=== PATIENT | male | born 1945 | race Caucasian/White ===

== ENCOUNTER 2016-12-12 15:45 | Inpatient (IN) | payer OTHER ==
[2016-12-12] MEDS ORDERED: DILTIAZEM 25 MG/5 ML VIAL IVP ONE (16:10)
--- NOTE | 2016-12-12 16:10 | CPEKG ---
Heart Rate: 190 RR Interval: 316 QRSD Interval: 82 QT Interval: 244 QTC Interval: 434 QRS [place]: 81 T Wave [place]: 201 EKG Severity - ABNORMAL ECG - EKG Impression: ATRIAL FIBRILLATION WITH RAPID V-RATE EKG Impression: RUN OF VENTRICULAR PREMATURE COMPLEXES EKG Impression: ABERRANT COMPLEX, POSSIBLY SUPRAVENTRICULAR EKG Impression: BORDERLINE RIGHT AXIS DEVIATION EKG Impression: LOW VOLTAGE IN FRONTAL LEADS EKG Impression: REPOLARIZATION ABNORMALITY, PROB RATE RELATED Electronically Signed By: Sagrario Villalobos 12-Dec-2016 22:46:27
--- NOTE | 2016-12-12 16:13 | EDPHY ---
H & P Time Seen by Provider: 12/12/16 15:53 HPI/ROS: CHIEF COMPLAINT: Rapid heart rate HISTORY OF PRESENT ILLNESS: Patient is a 71-year-old male with history of biventricular heart failure, atrial fibrillation, severe tricuspid regurgitation and renal insufficiency who is noncompliant with his medication and treatment plan. He states that for the past 3 months he has had increasing "arrhythmias." Over the past week he has had "an eye opening experience." He was [place] felt short of breath and was very tired. He had increased palpitations. He has also noticed ongoing increasing palpitations. He has had some mild chest pain earlier this week but none currently. He denies leg pain or swelling. No fevers or chills. No cough. Patient went to see his primary senior process control tech, Dr. Jacinto, today. There is found to be in rapid AFib. He was sent to the emergency department. Patient states he is noncompliant with his medications. He is currently not taking amiodarone, carvedilol, Lasix, lisinopril or warfarin. The patient states "I am like a chris off the street." REVIEW OF SYSTEMS: My complete review of systems is negative except as mentioned in the HPI. Past Medical/Surgical History: Includes biventricular heart failure, atrial fibrillation with rapid ventricular response, severe tricuspid regurgitation, acute renal insufficiency , elevated liver function tests, cardiomyopathy Social history: The patient denies smoking. Smoking Status: Never smoked Physical Exam: Vitals noted. Tachycardic in the 180s. GENERAL: Well-appearing, in no acute distress, alert. HEENT: Eyes normal to inspection, normal pharynx, no signs of dehydration. NECK: No thyromegaly, no lymphadenopathy, supple. RESPIRATORY: Clear to auscultation bilaterally, no rales, rhonchi or wheezing. CVS: rapid and irregularly irregular rhythm, no rubs, murmurs, or gallops. ABDOMEN: Soft, nontender, nondistended, no organomegaly. BACK: Normal to inspection, no CVA tenderness. SKIN: Normal color, no rash, warm, dry. No pallor. EXTREMITIES: No pedal edema, no calf tenderness, no Homans sign or cords, no joint swelling. NEURO/PSYCH: Alert and oriented x3, normal mood and affect, normal motor sensory exam. No obvious cranial nerve deficit. Constitutional: Initial Vital Signs Temperature (C) 36.8 C 12/12/16 16:02 Heart Rate 202 H 12/12/16 16:02 Respiratory Rate 16 12/12/16 16:02 Blood Pressure 126/86 H 12/12/16 16:02 O2 Sat (%) 96 12/12/16 16:02 O2 Delivery Mode Room Air Allergies/Adverse Reactions: No Allergies [NKA] Allergy (Unknown, Verified 10/18/12 15:12) Home Medications: Medication Instructions Recorded Permethrin 5% [Elimite 5% (RX)] 1 toño TP AD PRN 12/12/16 Medical Decision Making - Diagnostics EKG Interpretation: Atrial fibrillation with rapid ventricular response at 190. Multiple ventricular premature complexes. Borderline right axis deviation. ST depression in V4 through V 6. Imaging Results: Imaging Impressions Chest X-Ray 12/12/16 16:36 Impression: Stable cardiomegaly. Otherwise negative ED Course/Re-evaluation: In the emergency department the patient was placed on a media monitor. He was noted to be tachycardic into the 180s. This appeared to be irregular. Laboratory studies, EKG and chest x-ray were ordered. Patient was given diltiazem 20 mg IV followed by diltiazem 15 mg IV drip. Patient was given aspirin 324 mg orally. I rechecked the patient after receiving his diltiazem bolus. Heart rate ranged from 161 20. The patient had no complaints of chest pain or shortness of breath. I discussed the case with Dr. Schwartz on the phone. He recommended I start heparin. This was initiated. Patient was given Lasix 20 mg IV for heart failure. I performed frequent checks at the patient bedside. Dr. Hernandez came to the emergency department to evaluate the patient. I discussed the case with Dr. James who agreed to admit the patient. Patient had elevated troponin of 0.186. BNP was elevated at 7020. Patient had abnormal chemistry panel. Sodium was low 133. BUN was elevated at 33. Creatinine was 1.3. Patient's white count was 12. Hematocrit 47. Platelets 192. Patient had abnormal LFTs. Total bili was elevated at 3.8. Conjugated bili elevated at 1.1 and unconjugated elevated at 2.7. AST 107 ALT 183 and alk- phos 82. I discussed the results and plan with the patient. I answered all his questions. 1745: Patient is stable Differential Diagnosis: My differential includes but is not limited to atrial fibrillation with rapid ventricular response, ACS, acute MA, heart failure, renal insufficiency, tricuspid regurgitation Critical Care Time: The patient required 35 minutes of critical care time. This was exclusive of any unbundled procedure. This was due the patient's rapid ventricular rate from atrial fibrillation, need for frequent rechecks, consultation with Cardiology, and administration of Cardizem. - Data Points Laboratory Results: Laboratory Results 12/12/16 16:00 12/12/16 16:00 12/12/16 12/12/16 12/12/16 16:00 16:00 16:00 WBC 12.07 10^3/uL H 10^3/uL (3.80-9.50) RBC 5.06 10^6/uL 10^6/uL (4.40-6.38) Hgb 15.8 g/dL g/dL (13.7-17.5) Hct 47.4 % % (40.0-51.0) MCV 93.7 fL fL (81.5-99.8) MCH 31.2 pg pg (27.9-34.1) MCHC 33.3 g/dL g/dL (32.4-36.7) RDW 14.0 % % (11.5-15.2) Plt Count 192 10^3/uL 10^3/uL (150-400) MPV 13.0 fL H fL (8.7-11.7) Neut % (Auto) 73.0 % % (39.3-74.2) Lymph % (Auto) 14.2 % L % (15.0-45.0) [place] % (Auto) 11.8 % % (4.5-13.0) Eos % (Auto) 0.2 % L % (0.6-7.6) Baso % (Auto) 0.3 % % (0.3-1.7) Nucleat RBC Rel Count 0.0 % % (0.0-0.2) Absolute Neuts (auto) 8.81 10^3/uL H 10^3/uL (1.70-6.50) Absolute Lymphs (auto) 1.71 10^3/uL 10^3/uL (1.00-3.00) Absolute Monos (auto) 1.42 10^3/uL H 10^3/uL (0.30-0.80) Absolute Eos (auto) 0.03 10^3/uL 10^3/uL (0.03-0.40) Absolute Basos (auto) 0.04 10^3/uL 10^3/uL (0.02-0.10) Absolute Nucleated RBC 0.00 10^3/uL 10^3/uL (0-0.01) Immature Gran % 0.5 % % (0.0-1.1) Immature Gran # 0.06 10^3/uL 10^3/uL (0.00-0.10) PT 18.3 SEC H SEC (12.0-15.0) INR 1.52 H (0.83-1.16) APTT 30.0 SEC SEC (23.0-38.0) Sodium 133 mEq/L L mEq/L (134-144) Potassium 4.3 mEq/L mEq/L (3.5-5.2) Chloride 97 mEq/L mEq/L (97-110) Carbon Dioxide 22 mEq/l mEq/l (22-31) Anion Gap 14 mEq/L mEq/L (8-16) BUN 33 mg/dL H mg/dL (7-23) Creatinine 1.3 mg/dL mg/dL (0.7-1.3) Estimated GFR 54 Glucose 111 mg/dL H mg/dL (70-100) Calcium 9.5 mg/dL mg/dL (8.5-10.4) Total Bilirubin 3.8 mg/dL H mg/dL (0.1-1.4) Conjugated Bilirubin 1.1 mg/dL H mg/dL (0.0-0.5) Unconjugated Bilirubin 2.7 mg/dL H mg/dL (0.0-1.1) AST 107 IU/L H IU/L (17-59) ALT 183 IU/L H IU/L (21-72) Alkaline Phosphatase 82 IU/L IU/L (38-126) Troponin I 0.186 ng/mL H ng/mL (0-0.034) NT-Pro-B Natriuret Pep 7020 pg/mL H pg/mL (0-125) Total Protein 7.1 g/dL g/dL (6.3-8.2) Albumin 4.2 g/dL g/dL (3.5-5.0) Medications Given: Discontinued Medications Aspirin (Aspirin) 324 mg PO EDNOW ONE Stop: 12/12/16 16:15 Last Admin: 12/12/16 16:15 Dose: 324 mg Diltiazem HCl (Cardizem 25 Mg/5 Ml Vial) 20 mg IVP EDNOW ONE Stop: 12/12/16 16:11 Last Admin: 12/12/16 16:12 Dose: 20 mg Diltiazem HCl 125 mg/ Dextrose 125 mls @ 0 mls/hr IV EDNOW ONE; As Directed PRN Reason: Protocol Stop: 12/12/16 16:16 Last Admin: 12/12/16 16:40 Dose: 125 mls Departure - Departure Disposition: [facility] Inpatient Acute Clinical Impression: Atrial fibrillation with rapid ventricular response, Hyponatremia, Elevated LFTs Atrial fibrillation Qualifiers: Atrial fibrillation type: unspecified Qualified Code(s): I48.91 - Unspecified atrial fibrillation CHF (congestive heart failure) Qualifiers: Congestive heart failure type: combined Congestive heart failure chronicity: acute on chronic Qualified Code(s): I50.43 - Acute on chronic combined systolic (congestive) and diastolic (congestive) heart failure Condition: Good
[2016-12-12] MEDS ORDERED: ASPIRIN 81 MG CHEWABLE TAB PO ONE (16:14)
[2016-12-12] MEDS ORDERED: DILTIAZEM 125 MG in D5W 125 ML IV ONE (16:15)
[2016-12-12 16:44] LABS: % IMMATURE GRANULYOCYTES 0.5 % (0.0-1.1); ABSOLUTE IMMATURE GRANULOCYTES 0.06 10^3/uL (0.00-0.10); ADD DIFF? NO; ADD MORPH? NO; ADD SCAN? NO; ATYPICAL LYMPHOCYTE FLAG 10 (0-99); FRAGMENT RBC FLAG 0 (0-99); HEMATOCRIT 47.4 % (40.0-51.0); HEMOGLOBIN 15.8 g/dL (13.7-17.5); LEFT SHIFT FLG 0 (0-99); LIPEMIA HEMOLYSIS FLAG 80 (0-99); MEAN CELL HEMOGLOBIN 31.2 pg (27.9-34.1); MEAN CELL HEMOGLOBIN CONCENTR. 33.3 g/dL (32.4-36.7); MEAN CELL VOLUME 93.7 fL (81.5-99.8); PLATELET CLUMPS FLAG 10 (0-99); PLATELET COUNT 192 10^3/uL (150-400); RED BLOOD CELL COUNT 5.06 10^6/uL (4.40-6.38)
[2016-12-12] MEDS ORDERED: HEPARIN/DEXTROSE 500 ML IV ONE (16:49)
[2016-12-12] MEDS ORDERED: HEPARIN 10,000 UNIT/10 ML MDV IVP ONE (16:49)
[2016-12-12] MEDS ORDERED: FUROSEMIDE 20 MG/2 ML VIAL IVP ONE (16:50)
[2016-12-12 16:53] LABS: INR 1.52 (0.83-1.16); PROTIME(PATIENT) 18.3 SEC (12.0-15.0)
[2016-12-12 16:55] LABS: ALANINE AMINOTRANSFERASE 183 IU/L (21-72); ALBUMIN 4.2 g/dL (3.5-5.0); ALKALINE PHOSPHATASE 82 IU/L (38-126); ANION GAP 14 mEq/L (8-16); ASPARTATE AMINOTRANSFERASE 107 IU/L (17-59); BILIRUBIN,TOTAL 3.8 mg/dL (0.1-1.4); BILIRUBIN-CONJUGATED 1.1 mg/dL (0.0-0.5); BILIRUBIN-UNCONJUGATED 2.7 mg/dL (0.0-1.1); CALCIUM 9.5 mg/dL (8.5-10.4); CARBON DIOXIDE 22 mEq/l (22-31); CHLORIDE 97 mEq/L (97-110); CREATININE 1.3 mg/dL (0.7-1.3); GLOMERULAR FILTRATION RATE 54; GLUCOSE 111 mg/dL (70-100); POTASSIUM 4.3 mEq/L (3.5-5.2); SODIUM 133 mEq/L (134-144); TOTAL PROTEIN 7.1 g/dL (6.3-8.2)
[2016-12-12 17:06] LABS: TROPONIN I 0.186 ng/mL (0-0.034)
[2016-12-12] MEDS ORDERED: ONDANSETRON DISINTEGRATING 4 MG TAB PO PRN (17:41)
[2016-12-12] MEDS ORDERED: ONDANSETRON 4 MG/2 ML VIAL IVP PRN (17:41)
[2016-12-12] MEDS ORDERED: ACETAMINOPHEN 325 MG TAB PO PRN (17:41)
[2016-12-12] MEDS ORDERED: PERMETHRIN 5% 60 GM CREAM TP PRN (17:45)
[2016-12-12] MEDS ORDERED: DILTIAZEM 125 MG in D5W 125 ML IV SCH (17:45)
[2016-12-12] MEDS ORDERED: HEPARIN 10,000 UNIT/10 ML MDV IVP PRN (19:17)
--- NOTE | 2016-12-12 20:05 | GHP ---
[f rep st] HISTORY AND PHYSICAL DATE OF ADMISSION: 12/12/2016 CHIEF COMPLAINT: Dyspnea on exertion. HISTORY OF PRESENT ILLNESS: A 71-year-old male with a diagnosis of biventricular heart failure and atrial fibrillation who presents with progressing symptoms of dyspnea on exertion and ultimately at rest over the course of the past many weeks. Patient is quite active and notes that he was unable t o ski the normal [place] that he was accustomed to and instead found himself on [place] and bl ues, still feeling winded and weak. Patient additionally reports intermittent palpitations, with 1 episode of right-sided chest discomfort which was transient, lasting for a short period of time and spontaneously resolving without recurrence. He denies any other chest pain symptoms preceding this presentation. Denies any light headedness, vision changes, headache, nausea, vomiting. Does have c hronic constipation, which has been unchanged. Denies any bloody stools, bloody urine, and has had intermittent lower extremity edema over the course of the past many weeks. Patient is well aware of his cardiac diagnoses and chooses not to take medications. PAST MEDICAL HISTORY: 1. Biventricular heart failure, chronic. 2. Atrial fibrillation and atrial flutter, not on medications. 3. Severe tricuspid regurgitation. 4. History of previous acute kidney injury, thought secondary to volume loss. SOCIAL HISTORY: Negative for tobacco. Rare alcohol. No illicit drugs or marijuana. FAMILY HISTORY: He believes his mother had heart disease. ADVANCE DIRECTIVES: Patient does not want intubation but would be open to CPR, defibrillation, and medications. REVIEW OF SYSTEMS: A 10-point review of systems is negative, with the exception of that reported in HPI. PHYSICAL EXAMINATION: VITAL SIGNS: Blood pressure 126/86, heart rate 202, respiratory rate 16, 96% on room air, 36.8. GENERAL: This is a healthy-appearing middle-aged male in no acute distress. H EENT: Notable for dry mucous membranes. Eye exam is negative for any icterus. CARDIAC: Patient i s tachycardic. Difficult to auscultate other sounds at this heart rate. PULMONARY: No rales or rh onchi that I can appreciate. GASTROINTESTINAL: Positive bowel sounds. ABDOMEN: Soft and nontende r in all 4 quadrants. MUSCULOSKELETAL: No lower extremity edema. SKIN: Negative for any rashes. NEUROLOGIC: He is alert and oriented x3. PSYCHIATRIC: He is cooperative on interview and examina tion. DATA: Chest x-ray, which I personally reviewed, shows cardiomegaly. No pulmonary edema is apprecia gudelia. LABORATORY DATA: White count is 12.07. Hematocrit 47.4, which is above his previous baselines, sug gesting hemoconcentration. Platelets of 192. Sodium is 133. Creatinine is 1.3; baseline is 1. AST 107, ALT 183. Troponin is 0.186, and BNP is 7020. EKG, which I personally reviewed and interpreted, shows atrial fibrillation with heart rate in the 1 80s. ASSESSMENT AND PLAN: This is a 71-year-old male with known biventricular heart failure who presents with dyspnea with exertion and weakness. 1. Acute atrial fibrillation with rapid ventricular response: Patient is presenting with very elev ated heart rates, above 200 at some recordings. Patient has not been taking any anticoagulation or rate control medications. Will admit the patient and place on a Cardizem drip and a heparin drip. Cardiology has been consulted from the emergency department and will see the patient in consultation . 2. Acute dyspnea on exertion: Patient has known biventricular heart failure, presenting with an el evated BNP. However, chest imaging is not consistent with acute pulmonary edema, and the rest of hi s clinical picture is more consistent with hemoconcentration. Patient received 1 dose of Lasix IV i n the emergency department, and I will hold on additional diuresis at this time as he has no lower e xtremity edema, is satting 96% on room air, with no pulmonary edema, and will recheck a complete tra nsthoracic echocardiogram to visualize progression, potentially, of his biventricular heart failure. 3. Chronic biventricular heart failure: As above, will repeat echo imaging and wait to initiate ad ditional medications until seen by Cardiology. 4. Acute kidney injury: Creatinine is 1.2. Patient has other peripheral markers of hemoconcentrat ion, including an elevated hematocrit, hyponatremia. Suspect he may be volume down. Will not give additional diuretics at this time and would consider small doses of IV fluids. Will recheck the pat ient's renal function in the morning. If in fact it is worse, I would recommend gentle hydration. 5. Mild transaminitis: Patient saw this on his last hospitalization as well, when his heart dysfun ction was not medically compensated. Will follow intermittent liver function tests. Do not think w e need additional diagnostics at this time as I suspect it is cardiac in nature. 6. Prophylaxis: Patient will be on a heparin drip. Diet cardiac. DISPOSITION: I expect him greater than 2 midnights, as the patient will need time for heart rate co ntrol on diltiazem drip, consultation with Cardiology, and additional diagnostics related to his kno wn BiV heart failure. /[id number]/MODL
[2016-12-12 20:22] LABS: INR 1.73 (0.83-1.16); PROTIME(PATIENT) 20.3 SEC (12.0-15.0)
[2016-12-12 22:02] LABS: APTT 169.2 SEC (23.0-38.0)
[2016-12-13 02:01] LABS: % IMMATURE GRANULYOCYTES 0.6 % (0.0-1.1); ABSOLUTE IMMATURE GRANULOCYTES 0.06 10^3/uL (0.00-0.10); ADD DIFF? NO; ADD MORPH? NO; ADD SCAN? NO; ATYPICAL LYMPHOCYTE FLAG 10 (0-99); FRAGMENT RBC FLAG 0 (0-99); HEMATOCRIT 42.1 % (40.0-51.0); HEMOGLOBIN 14.6 g/dL (13.7-17.5); LEFT SHIFT FLG 0 (0-99); LIPEMIA HEMOLYSIS FLAG 90 (0-99); MEAN CELL HEMOGLOBIN 31.9 pg (27.9-34.1); MEAN CELL HEMOGLOBIN CONCENTR. 34.7 g/dL (32.4-36.7); MEAN CELL VOLUME 91.9 fL (81.5-99.8); MEAN PLATELET VOLUME 12.5 fL (8.7-11.7); PLATELET CLUMPS FLAG 0 (0-99); PLATELET COUNT 163 10^3/uL (150-400); RED BLOOD CELL COUNT 4.58 10^6/uL (4.40-6.38)
[2016-12-13 02:39] LABS: ANION GAP 12 mEq/L (8-16); CALCIUM 8.6 mg/dL (8.5-10.4); CARBON DIOXIDE 18 mEq/l (22-31); CHLORIDE 101 mEq/L (97-110); CREATININE 1.3 mg/dL (0.7-1.3); GLOMERULAR FILTRATION RATE 54; GLUCOSE 126 mg/dL (70-100); POTASSIUM 4.2 mEq/L (3.5-5.2); SODIUM 131 mEq/L (134-144)
[2016-12-13] MEDS ORDERED: ENOXAPARIN 40 MG/0.4 ML SYR SC SCH (09:00)
--- NOTE | 2016-12-13 09:53 | ECHO ---
[id number] + + [address] : : [place] [address] : : [phone] + Adult Echocardiographic Report + ----+ :Name: Leandra LEIGH Date: 12/13/2016 08:24 AM : : Hospital Admission Number: [id number] Location: 214: :: 1945 Gender: Male Height: 70 in : :Age: 71 yrs Race: WH,UN Weight: 177 lb : :Reason For Study: Eval LV Fx : : BSA: 2.0 meters2 : :History: SOB, Hx of CHF : + ----+ MMode/2D Measurements \T\ Calculations IVSd: 0.90 cm LVIDd: 5.9 cm FS: 9.4 % MV Diam: 3.1 cm LVPWd: 0.99 cm LVIDs: 5.3 cm EDV(Teich): 170.9 ml ESV(Teich): 136.3 ml EF(Teich): 20.3 % Ao root diam: LVOT diam: 2.0 cmLVLd ap4: 7.8 cm SV(MOD-sp4): 3.2 cm LVOT area: EDV(MOD-sp4): 18.0 ml ACS: 2.3 cm 3.1 cm2 116.0 ml LA dimension: LVLs ap4: 7.8 cm 4.7 cm ESV(MOD-sp4): 98.0 ml EF(MOD-sp4): 15.5 % Normal Measurement Values: + + :LVIDd (3.5-5.7cm) IVSd (0.6-1.1cm) LVPWd (0.6-1.1cm) Aortic Root (2.0-3.7cm)Left Atrium (1.5-4.0cm): :LV Vol(d) (76-115ml) LV Vol(s) (29-48ml) Ejec Fraction (50-65%)PV Duarte (0.6- 1.2m/s) TV Duarte (0.4-1.0m/s) : :MV E Duarte (0.8-1.0m/s)MV A Duarte (0.3-1.0m/s)LVOT Duarte (0.7-1.2m/s) Asc Ao Duarte ( 0.9-1.8m/s) : + + Doppler Measurements \T\ Calculations MV E max duarte: MV V2 mean: Ao V2 max: LV V1 max: 84.4 cm/sec 71.6 cm/sec 88.2 cm/sec 55.8 cm/sec MV mean P.4 mmHg Ao max PG: LV V1 max PG: MV V2 VTI: 22.4 cm 3.1 mmHg 1.2 mmHg MV area (1 diam): AMBER(V,D): 2.0 cm2 LV V1 mean P.5 cm2 0.70 mmHg LV V1 mean: MVA(VTI): 1.1 cm2 36.6 cm/sec MV Flow area(1diam): LV V1 VTI: 7.6 cm 7.5 cm2 MR max duarte: MR(RF 1 diam): SV(MV 1 diam): PA V2 max: 444.3 cm/sec 11.3 % 169.4 ml 73.3 cm/sec MR max PG: SI(MV 1 diam): PA max P.0 mmHg 85.5 ml/m2 2.1 mmHg SV(LVOT): 23.9 ml PI end-d duarte: TR max duarte: RF(MV,LVOT) 105.9 cm/sec 282.3 cm/sec (1diam): 0.86 TR max P.9 mmHg RAP systole: 5.0 mmHg RVSP(TR): 36.9 mmHg Left Ventricle The left ventricle is normal in size. There is normal left ventricular wall thickness. Left ventricular systolic function is severely reduced. Ejection Fraction = 15-20%. There is Doppler evidence for diastolic dysfunction. The rhythm is atrial fibrillation. Right Ventricle The right ventricle is mild to moderately dilated. The right ventricular systolic function is mild to moderately reduced. Atria The left atrium is severely dilated. The Left Atrial Volume is 50 ml/m2. The right atrium is moderately dilated. A dilated inferior vena cava suggests increased right atrial pressure. Mitral Valve The mitral valve is normal in structure and function. There is no evidence of mitral valve prolapse. There is no mitral valve stenosis. There is mild to moderate mitral regurgitation. Tricuspid Valve The tricuspid valve is normal in structure and function. There is moderate tricuspid regurgitation. The pulmonary artery pressure may be underestimated due to RV function. Aortic Valve The aortic valve is normal in structure and function. The aortic valve is trileaflet. Low velocity across the aortic valve. No AI. Pulmonic Valve Mild to moderate pulmonic valvular regurgitation. Great Vessels The aortic root is normal size. Pericardium/Pleural There is no pericardial effusion. Conclusion A complete two-dimensional transthoracic echocardiogram was performed (2D, M-mode, Doppler and color flow Doppler). The rhythm is atrial fibrillation. Left ventricular systolic function is severely reduced. Ejection Fraction = 15-20%. There is Doppler evidence for diastolic dysfunction. The right ventricle is mild to moderately dilated. The right ventricular systolic function is mild to moderately reduced. The left atrium is severely dilated. The Left Atrial Volume is 50 ml/m2. The right atrium is moderately dilated. A dilated inferior vena cava suggests increased right atrial pressure. The aortic valve is normal in structure and function. The mitral valve is normal in structure and function. There is mild to moderate mitral regurgitation. The tricuspid valve is normal in structure and function. There is moderate tricuspid regurgitation. The pulmonary artery pressure may be underestimated due to RV function. Mild to moderate pulmonic valvular regurgitation. There is no pericardial effusion. Final Reading Physician: Cinda Vázquez signed on 12/13/2016 09:52 AM Ordering Physician: Rayna James Performed By: Josue Tejeda, DEBCS
[2016-12-13] MEDS ORDERED: DIGOXIN 500 MCG/2 ML AMP IVP ONE (10:25)
[2016-12-13] MEDS ORDERED: FUROSEMIDE 40 MG/4 ML VIAL IVP ONE (10:25)
[2016-12-13] MEDS: CARVEDILOL 25 MG TAB PO SCH ×2 (11:22→18:43)
[2016-12-13] MEDS: HEPARIN/DEXTROSE 500 ML IV SCH (11:23)
--- NOTE | 2016-12-13 14:54 | PDCARPN ---
Cardiology Progress Note Assessment/Plan: Chronic Atrial Fibrillation- Rate control improving on IV diltiazem. [id number] score of 2 based on age and CHF. No TIA/CVA type symptoms. No history of bleeding episodes. Feels that he had side effects in 2012 from warfarin. Would prefer a NOAC; can start Eliquis and d/c IV heparin. Will start carvedilol and wean IV diltiazem. Nonischemic Cardiomyopathy- echo this morning demonstrates LVEF is decreased compared to 2013 and is now 10-15%. Most likely etiology is tachycardia mediated related to his poorly-controlled atrial fibrillation. Chronic Systolic CHF- has NYHA class III to IV symptoms but appears surprisingly well volume compensated. An additional dose of intravenous Lasix given earlier today. Coronary Artery Disease- minimal CAD on 2013 cath (personally reviewed). Noncompliance- patient's affect and his attitude towards medical therapy are somewhat unusual. I suspect this will continue to pose challenges to his medical care. I had a long discussion with him this morning that standard therapy for his condition should include a beta mercy, an JEMIMA-I or ARB, a loop diuretic, and eventually spironolactone. Additionally, he might be considered for replacement of JEMIMA-I/ARB with Entresto. Dr. James' office note from yesterday mentioned a potential EP consult to consider AV node ablation for rate control with implantation of a pacer/ICD. I discussed this with the patient yesterday evening in the ER and again today. He has no interest in ICD capability. Therefore, the option of AV node ablation and standard pacemaker insertion would typically only be considered if adequate rate control cannot be obtained with medical therapy. 12/13/16 14:47 Subjective: Still very dyspneic. Reviewed/Discussed With: hospitalist Objective: Vital Signs (8 Hrs) Temp Pulse Resp BP Pulse Ox 12/13/16 12:00 36.5 C 78 19 105/76 92 12/13/16 08:00 36.6 C 100 16 100/72 96 Intake/Output (24 Hrs) 12/12/16 12/13/16 12/14/16 05:59 05:59 05:59 Intake Total 300 Output Total 450 550 Balance -150 -550 Intake: Oral (ml) 300 Output: Urine (ml) 450 550 Urinal 450 550 Other: Weight 78.95 kg Number of Voids Urinal 2 Number of Stools Toilet 2 Result Diagrams: 12/13/16 01:35 12/13/16 01:35 Cardiac Labs: Cardiac Lab Results (72 Hrs) 12/12/16 22:08 Troponin I 0.156 H - Physical Exam Constitutional: no apparent distress Eyes: anicteric sclera Ears, Nose, Mouth, Throat: moist mucous membranes Cardiovascular: irregularly irregular, jugular vein distention Respiratory: other (minimal basilar rales) Gastrointestinal: normoactive bowel sounds, no tenderness, no masses Skin: no rashes, no edema Neurologic: AAOx3 Psychiatric: not anxious ICD10 Worksheet Patient Problems: Problems Problem Status Onset Atrial fibrillation Acute Atrial fibrillation with rapid ventricular response Acute CHF (congestive heart failure) Acute Elevated LFTs Acute Hyponatremia Acute
--- NOTE | 2016-12-13 16:44 | HOSPPROG ---
Hospitalist Progress Note Assessment/Plan: 71 yo M with PMH of chronic a fib, severe TR, CKD and medication non compliance pw afib w/rvr # chronic a fib w/rvr: patient has a hx of multiple prior ablations but has also had longstanding issues with medication non compliance, presenting with HR in 200s. Started on dilt gtt but transitioning to carvedilol, AC with eliquis taking off of heparin gtt. Unclear if patient will be able to maintain compliance after dc. # acute on chronic systolic/diastolic heart failure: with EF decreased from prior and now down to 10--15%, despite that he is quite well compensated at this time. As above, care is limited by his lack of medication compliance. Presumed all non ischemic related to chronic uncontrolled a fib. Given IV lasix x 2 now. At dc can discuss further if he would consider full tx including master/ arb, bb, lasix, aldactone. # dayanna: with creatinine of 1.3 from baseline closer to 1, suspect largely related to worsening forward flow in setting of acute heart failure as above. Has been stable post lasix. Monitoring. # elevated trop: likely largely driven by demand in setting of prolonged tachycardia, no chest pain, trending down. Monitoring on tele. # hyponatremia: appears largely euvolemic and slightly worsened na as well as increased bicarb in setting of diuresis, monitoring, caution with lasix # med non compliance: somewhat confusing conversation with patient regarding his feelings around medication usage, he states he did not take his medication because he did not need it, seems to have a fair bit of mistrust of the health care system in general. Ongoing conversation. # IP status, will likely need another 1-2 days of diuresis in house as well as rate control Patient new to my care. Old records reviewed and summarized as above. Care plan reviewed with cardiology including plans for attempted med mgmt. Subjective: no significant overnight events, patient is feeling a bit better but not great, frustrated with being in the hospital however acknowledges that given how bad he felt when he came in, that he needs to be here Objective: Vital Signs Temp Pulse Resp BP Pulse Ox 36.5 C 78 19 105/76 92 12/13/16 12:00 12/13/16 12:00 12/13/16 12:00 12/13/16 12:00 12/13/16 12:00 Laboratory Results 12/13/16 01:35 12/13/16 01:35 12/12/16 12/13/16 12/14/16 05:59 05:59 05:59 Intake Total 300 Output Total 450 550 Balance -150 -550 PT 20.3 SEC (12.0-15.0) H 12/12/16 19:53 INR 1.73 (0.83-1.16) H 12/12/16 19:53 awake alert nad anicteric op clear irreg irreg normal rate cta b soft nt nd no cce warm dry well perfused oriented appropriate - Time Spent With Patient Time Spent with Patient: greater than 35 minutes Time Spent with Patient: Greater than 35 minutes spent on this patients care, greater than 50% of time spent counseling, educating, and coordinating care regarding the above mentioned plan. ICD10 Worksheet Patient Problems: Problems Problem Status Onset Atrial fibrillation Acute Atrial fibrillation with rapid ventricular response Acute CHF (congestive heart failure) Acute Elevated LFTs Acute Hyponatremia Acute
[2016-12-14] MEDS: CARVEDILOL 25 MG TAB PO SCH (08:03)
[2016-12-14] MEDS: HEPARIN/DEXTROSE 500 ML IV SCH (08:03)
[2016-12-14 11:06] VITALS: BP 105/73; RESP 17; TEMP 97.6; O2SAT 97
[2016-12-14] MEDS ORDERED: DIGOXIN 500 MCG/2 ML AMP IVP ONE (13:29)
[2016-12-14] MEDS ORDERED: APIXABAN 5 MG TAB PO SCH (13:30)
--- NOTE | 2016-12-14 13:33 | PDDCSUM ---
Discharge Summary Discharge Summary: Dates of service 12/12-12/14/16 Discharge dx: # a fib w/rvr # acute systolic heart failure # elevated trop # dayanna # hyponatremia Consultations: cardiology procedures: echo Hospital course by problem: # chronic a fib w/rvr: patient has a hx of multiple prior ablations but has also had longstanding issues with medication non compliance, presenting with HR in 200s. Will dc on coreg, dig and eliquis. Unclear if he will be compliant # acute on chronic systolic/diastolic heart failure: with EF decreased from prior and now down to 10--15%, despite that he is quite well compensated at this time. As above, care is limited by his lack of medication compliance. DC on lasix, he will f/u with cardiology to determine if he is amenable to addition of other meds like master/arb and aldactone etc. # dayanna: with creatinine of 1.3 from baseline closer to 1, suspect largely related to worsening forward flow in setting of acute heart failure as above. Has been stable post lasix. Monitoring. # elevated trop: likely largely driven by demand in setting of prolonged tachycardia, no chest pain, trending down. Monitoring on tele. # hyponatremia: appears largely euvolemic and slightly worsened na as well as increased bicarb in setting of diuresis, monitoring, caution with lasix # med non compliance: seems to have a fair bit of mistrust of the health care system in general, agrees to current tx plan at this time. Ongoing conversation. dc home f/u with cardiology/pcp > 35 minutes spent in dc more than half in coordination of care
[2016-12-14 14:22] VITALS: PULSE 108
--- NOTE | 2016-12-15 11:38 | PDCARPN ---
Cardiology Progress Note Assessment/Plan: LATE ENTRY; PATIENT WAS SEEN 12/14/17 @ 11:00 am Chronic Atrial Fibrillation- Rate control marginal on carvedilol. [id number] score of 2 based on age and CHF. No TIA/CVA type symptoms. No history of bleeding episodes. Feels that he had side effects in 2012 from warfarin. Would prefer a NOAC; start Eliquis and d/c IV heparin. Add digoxin 0.125 mg daily. Nonischemic Cardiomyopathy- LVEF is decreased compared to 2013 and is now 10-15% . Most likely etiology is tachycardia mediated related to his poorly-controlled atrial fibrillation. Chronic Systolic CHF- has NYHA class III to IV symptoms but appears surprisingly well volume compensated. Start Lasix 40 mg PO daily. Coronary Artery Disease- minimal CAD on 2013 cath (personally reviewed). Noncompliance- patient's affect and his attitude towards medical therapy are somewhat unusual. I suspect this will continue to pose challenges to his medical care. I had a long discussion with him that standard therapy for his condition should include a beta mercy, an JEMIMA-I or ARB, a loop diuretic, and eventually spironolactone. Additionally, he might be considered for replacement of JEMIMA-I/ARB with Entresto. Dr. James' office note from 12/12 mentioned a potential EP consult to consider AV node ablation for rate control with implantation of a pacer/ICD. I discussed this with the patient in the ER and again yesterday. He has no interest in ICD capability. Therefore, the option of AV node ablation and standard pacemaker insertion would typically only be considered if adequate rate control cannot be obtained with medical therapy. Disposition- OK for discharge today. Will instruct [facility] office staff to contact him to arrange a follow up visit with Dr. James i the near future. 12/13/16 14:47 12/15/16 11:30 Reviewed/Discussed With: hospitalist Objective: Intake/Output (24 Hrs) 12/14/16 12/15/16 12/16/16 05:59 05:59 05:59 Intake Total 800 120 Output Total 1300 Balance -500 120 Intake: Oral (ml) 800 120 Output: Urine (ml) 1300 Toilet 500 Urinal 800 Other: Intake Quantity Yes Sufficient Number of Stools Toilet 2 Result Diagrams: 12/14/16 04:28 12/13/16 01:35 Cardiac Labs: Cardiac Lab Results (72 Hrs) 12/12/16 22:08 Troponin I 0.156 H - Physical Exam Constitutional: no apparent distress Eyes: anicteric sclera Ears, Nose, Mouth, Throat: moist mucous membranes Cardiovascular: no murmurs, irregularly irregular Respiratory: clear to auscultate bilat Gastrointestinal: normoactive bowel sounds, no tenderness, no masses Skin: no rashes, no edema Neurologic: AAOx3 Psychiatric: not anxious ICD10 Worksheet Patient Problems: Problems Problem Status Onset Atrial fibrillation Acute Atrial fibrillation with rapid ventricular response Acute CHF (congestive heart failure) Acute Elevated LFTs Acute Hyponatremia Acute
== END 2016-12-14 16:32 | disposition home or self-care (01) | DRG 308 ==
LOC: F2W 18:37
PROVIDERS: ADMIT Hospitalist; ATTEND Internal Medicine
DX: I48.2 Chronic atrial fibrillation (principal); I50.43 Acute on chronic combined systolic (congestive) and diastolic (congestive) heart failure; I36.1 Nonrheumatic tricuspid (valve) insufficiency; N17.9 Acute kidney failure, unspecified; E87.1 Hypo-osmolality and hyponatremia; Z91.128 Patient's intentional underdosing of medication regimen for other reason
CPT/HCPCS: 85520-90; 96374; J1160; J1644

== ENCOUNTER 2017-10-30 10:40 | Inpatient (IN) | payer OTHER ==
--- NOTE | 2017-10-30 11:26 | EDPHY ---
H & P Stated Complaint: increasing LE edema for the past month, trouble sleeping Time Seen by Provider: 10/30/17 11:11 - Personal History Current Tetanus/Diphtheria Vaccine: No Current Tetanus Diphtheria and Acellular Pertussis (TDAP): No - Medical/Surgical History Hx Asthma: No Hx Chronic Respiratory Disease: No Hx Diabetes: No Hx Cardiac Disease: No Hx Renal Disease: No Hx Cirrhosis: No Hx Alcoholism: No Hx HIV/AIDS: No Hx Splenectomy or Spleen Trauma: No Other PMH: biventricular heart failure, renal insufficiency, afib, tricuspid regurge - Social History Smoking Status: Never smoked Constitutional: Initial Vital Signs Temperature (C) 36.8 C 10/30/17 10:45 Heart Rate 110 H 10/30/17 10:45 Respiratory Rate 18 10/30/17 10:45 O2 Sat (%) 96 10/30/17 10:45 O2 Delivery Mode Room Air Allergies/Adverse Reactions: No Allergies [NKA] Allergy (Unknown, Verified 10/30/17 10:44) Home Medications: Medication Instructions Recorded Permethrin 5% [Elimite 5%] 1 toño TP AD PRN 12/12/16 Acetaminophen [Tylenol 325mg (*)] 650 mg PO Q4HRS PRN #0 tab 12/14/16 Apixaban [Eliquis] 5 mg PO BID #60 tab 12/14/16 Carvedilol [Coreg (*)] 12.5 mg PO BIDMEAL #60 tab 12/14/16 Digoxin [Lanoxin 125 mcg (RX)] 125 mcg PO DAILY10 #30 tab 12/14/16 Furosemide [Lasix 40 MG (*)] 40 mg PO DAILY #30 tab 12/14/16 Spironolactone 10/30/17 Medical Decision Making ED Course/Re-evaluation: CHIEF COMPLAINT: Discomfort, difficulty sleeping, increasing leg edema since stopping CHF meds HISTORY OF PRESENT ILLNESS: The patient is a 72 y/o male with CHF and atrial fibrillation arriving with his family member complaining of discomfort and difficulty sleeping. He says, "as far as I'm concerned it's end-stage congestive arrhythmic heart" and is refusing interventions. He stopped all of his medications except for Lasix and reports his leg swelling has increased. He says, "I've felt basically shitty for the last 3 weeks." He has also noticed multiple red spots appearing on both legs over the last week. His cardiologists recommended open heart surgery, which he declined. He says, "I did not come here to be saved, I came here to pass with some sort of sedative that will allow me to sleep at night and fade into the past;" "I hope I pass within the week, quite frankly." He would like to be admitted to the hospital and given sedatives until he dies. REVIEW OF SYSTEMS: A 10 point review of systems was performed and is negative with the exception of the elements mentioned in the history of present illness. PHYSICAL EXAM: HR 160, BP, O2 Sat, RR. Temp noted General Appearance: Alert, well hydrated, appropriate, and non-toxic appearing. Head: Atraumatic without scalp tenderness or obvious injury Eyes: Pupils equal, round, reactive to light and accommodation, EOMI, no trauma , no injection. Nose: Atraumatic, no rhinorrhea, clear. Throat: Mucus membranes moist. Neck: Supple Respiratory: No retractions, no distress, no wheezes, and no accessory muscle use. Lungs are clear to auscultation bilaterally. Cardiovascular: Rapid irregular rate and rhythm, no murmurs, rubs, or gallops. Good capillary refill all extremities. Gastrointestinal: Abdomen is soft, nontender, non-distended, no masses, no rebound, no guarding, no peritoneal signs. Musculoskeletal: 2-3+ pitting edema bilaterally with petechia. Normal active ROM of all extremities, atraumatic. Neurological: Alert, appropriate, and interactive. The patient has non-focal cranial nerves, motor, sensory, and cerebellar exam. Skin: No rashes, good turgor, no nodules on palpation. Past medical history: Chronic atrial fibrillation with RVR, nonischemic cardiomyopathy, chronic systolic CHF, CAD, medication noncompliance. Past surgical history: Noncontributory Family history: Noncontributory Social history: Friend at bedside. "If I pass do not try to revive me." [employer] S[employer] Leveler: Dr. Hernandez Prior medical records reviewed including admission 12/12/16 for a-fib and CHF. DIAGNOSTICS/PROCEDURES/CRITICAL CARE TIME: The 12 lead EKG was interpreted by myself. Rapid atrial fibrillation. See hard copy and/or "tracemaster" electronic copy for interpretation. DIFFERENTIAL DIAGNOSIS: The differential diagnosis for the patient's narrow complex tachycardia included but was not limited to various causes of sinus tachycardia such as dehydration and medicines, SVT, atrial flutter, atrial fibrillation, pulmonary causes. MEDICAL DECISION MAKING: This is a 72 y/o male with CHF and atrial fibrillation who thinks he is dying and is requesting admission and sedatives to help him sleep until he dies. He is non-compliant with his meds and reports worsening symptoms since stopping everything but Lasix 3 weeks ago. He does not appear gravely ill on exam. He has 2+ pitting edema bilaterally with petechia and is in a rapid atrial fibrillation. I had a long discussion with him about what he understands about the progression of his CHF, medications, and the treatment he would like from the hospital. I believe his symptoms that worsened over the last 3 weeks since stopping medications would improve if he allows us to treat his rapid rate and edema. He ultimately agrees to treatment, though makes it clear that if "it doesn't work don't revive me." Plan for IV, labs, EKG, and medication. 80mg SC Lovenox, and IV Diltiazem bolus and drip ordered. Spoke with hospitalist service. Dr. Abreu accepts admission. Report Scribed for: Nazario Torres Report Scribed by: Alicia Harris Date of Report: 10/30/17 Time of Report: 12:10
[2017-10-30] MEDS ORDERED: DILTIAZEM 125 MG in D5W 125 ML IV ONE (12:09)
[2017-10-30] MEDS ORDERED: DILTIAZEM 25 MG/5 ML VIAL IVP ONE (12:09)
--- NOTE | 2017-10-30 12:23 | CPEKG ---
Heart Rate: 151 RR Interval: 397 QRSD Interval: 90 QT Interval: 272 QTC Interval: 432 QRS Wilmer: 70 T Wave Wilmer: -75 EKG Severity - ABNORMAL ECG - EKG Impression: ATRIAL FIBRILLATION WITH RAPID V-RATE EKG Impression: LOW VOLTAGE IN FRONTAL LEADS EKG Impression: BORDERLINE T ABNORMALITIES, DIFFUSE LEADS Electronically Signed By: Nazario Torres 30-Oct-2017 13:31:42
[2017-10-30 12:24] LABS: PLATELET COUNT 135 10^3/uL (150-400)
[2017-10-30] MEDS ORDERED: DILTIAZEM 50 MG/10 ML VIAL IV ONE (12:24)
[2017-10-30] MEDS ORDERED: ONDANSETRON 4 MG/2 ML VIAL IVP PRN (12:32)
[2017-10-30] MEDS: ENOXAPARIN 80 MG/0.8 ML SYR SC ONE ×2 (12:32→12:41)
[2017-10-30] MEDS ORDERED: ONDANSETRON DISINTEGRATING 4 MG TAB PO PRN (12:32)
[2017-10-30 12:33] LABS: INR 1.67 (0.83-1.16); PROTIME(PATIENT) 19.8 SEC (12.0-15.0)
[2017-10-30] MEDS ORDERED: DILTIAZEM HCL/D5W 125 ML IV SCH (13:00)
--- NOTE | 2017-10-30 14:41 | PDGENHP ---
History and Physical - Chief Complaint Acute on chronic shortness of breath - History of Present Illness Primary care provider: None Primary surgical specialist: Dr. Donnie Hernandez HPI: 72-year-old male presenting with acute on chronic shortness of breath characterized as inability to ambulate greater than 15 ft without experiencing labored breathing with associated edema located in his bilateral lower extremities, with the symptom onset particularly over the last month and duration persistently worsening thereafter. He reports that the symptoms have resulted in poor sleep, tossing and turning at night, and rendering him mostly bed-bound and supine. He reports that he is sometimes able to get relief by sitting upright but his symptoms have resulted in overall frustration with life. The patient has experienced these symptoms in the past, as they have been the natural sequelae of his chronic systolic CHF as well as uncontrolled AFib and medication non adherence. That being said, the patient reports that the 1st 3 out of the last 4 months he felt very physically and emotionally well, and is only over the past 4 weeks that he has felt physically and emotionally unwell. During these past 4 weeks, the patient has felt very frustrated with his own life, frustrated with society and [employer] leadership, and the patient has ruminating about with his roommates, considering there needs and ultimately deciding to seek the end of his life at our hospital. He does not want to burden his roommates with responsibility of getting rid of the body. He denies feeling depressed or suicidal, and he does not believe that he has any firearms in his house. He does endorse feeling hopeless, about all the issues outlined above, and he is specifically requesting to receive something to help him pass away in his sleep , as he feels like he has led a fulfilling life and now it is no longer with fulfilling. He does seem to have investigated hospice options in the past, as he is familiar with the name of [facility], as well as home services, but it is not entirely clear to what extent he has actually worked with them. He reports that he does not want to go back to the cardiology office to optimize his CHF management, as he does not feel like he trusts those providers, and he feels like he physically felt worse while he was on the combination of appropriate systolic CHF medications that had been prescribed. He is currently declining any additional radiographic imaging, tests, but is amenable to medical therapy which may improve how he feels, including diltiazem drip and diuretics. History Information - Allergies/Home Medication List Allergies/Adverse Reactions: No Allergies [NKA] Allergy (Unknown, Verified 10/30/17 10:44) Home Medications: Spironolactone [Aldactone 25 MG (*)] 25 mg PO DAILY 10/30/17 [Last Taken 2 Months Ago ~09/01/17] I have personally reviewed and updated: family history, medical history, social history, surgical history - Past Medical History atrial fibrillation (And flutter with intermittent nonsustained ventricular tachycardia, previously on beta-mercy and digoxin as well as Eliquis, currently not taking any these medications), CHF (Chronic systolic with ejection fraction 10-15%, felt to be a nonischemic cardiomyopathy with cardiac catheterization) Additional medical history: Severe tricuspid regurgitation. Medication non adherence - Surgical History Additional surgical history: Prior cardiac ablations, unclear which years - Family History Additional family history: No family history of mental health disorders, substance abuse or suicide, his mother did have coronary disease - Social History Smoking Status: Never smoked Alcohol Use: None Drug Use: None Additional social history: Highly educated, formerly a chemical dependency therapist, traveled extensively in the [facility], currently living in a trailer with 2 male roommates and reportedly bed-bound Review of Systems Review of Systems: ROS: 10pt was reviewed & negative except for what was stated in HPI & below Constitutional: Reports: other (Distressed) Cardiac: Reports: edema Respiratory: Reports: shortness of breath Physical Exam Physical Exam: Temp Pulse Resp BP Pulse Ox 36.7 C 97 14 79/65 L 93 10/30/17 13:02 10/30/17 13:02 10/30/17 13:02 10/30/17 13:02 10/30/17 13:02 Constitutional: no apparent distress, appears nourished, not in pain, uncomfortable Eyes: PERRL, anicteric sclera, EOMI Ears, Nose, Mouth, Throat: hearing normal, other (Tacky mucous membranes) Cardiovascular: systolic murmur (2/6 at the base), irregularly irregular, JVD, tachycardia, edema (1+ bilateral lower extremities) Respiratory: inspiratory crackles (Bilateral bases), No reduced air movement, No expiratory wheeze, No bronchial breath sounds, No respiratory distress Gastrointestinal: normoactive bowel sounds, soft, non-tender abdomen, no palpable masses, distension (Mild) Skin: No abrasion, No rash Neurologic: AAOx3, No weakness (Motor strength 5/5 bilateral lower extremities) , No facial droop Psychiatric: not encephalopathic, other (Tangential thought process but redirectable, ruminates on , has not inappropriately intense stare which he frequently engages during our conversation, denies depression, denies suicidal ideation, somewhat rapid pace to his speech pattern) Lab Data & Imaging Review 10/30/17 12:12 10/30/17 12:12 WBC 9.83 10^3/uL (3.80-9.50) H 10/30/17 12:12 RBC 4.72 10^6/uL (4.40-6.38) 10/30/17 12:12 Hgb 14.8 g/dL (13.7-17.5) 10/30/17 12:12 Hct 43.2 % (40.0-51.0) 10/30/17 12:12 MCV 91.5 fL (81.5-99.8) 10/30/17 12:12 MCH 31.4 pg (27.9-34.1) 10/30/17 12:12 MCHC 34.3 g/dL (32.4-36.7) 10/30/17 12:12 RDW 15.4 % (11.5-15.2) H 10/30/17 12:12 Plt Count 135 10^3/uL (150-400) L 10/30/17 12:12 MPV 12.1 fL (8.7-11.7) H 10/30/17 12:12 Neut % (Auto) 84.5 % (39.3-74.2) H 10/30/17 12:12 Lymph % (Auto) 8.9 % (15.0-45.0) L 10/30/17 12:12 Sunflower % (Auto) 5.8 % (4.5-13.0) 10/30/17 12:12 Eos % (Auto) 0.1 % (0.6-7.6) L 10/30/17 12:12 Baso % (Auto) 0.1 % (0.3-1.7) L 10/30/17 12:12 Nucleat RBC Rel Count 0.0 % (0.0-0.2) 10/30/17 12:12 Absolute Neuts (auto) 8.31 10^3/uL (1.70-6.50) H 10/30/17 12:12 Absolute Lymphs (auto) 0.87 10^3/uL (1.00-3.00) L 10/30/17 12:12 Absolute Monos (auto) 0.57 10^3/uL (0.30-0.80) 10/30/17 12:12 Absolute Eos (auto) 0.01 10^3/uL (0.03-0.40) L 10/30/17 12:12 Absolute Basos (auto) 0.01 10^3/uL (0.02-0.10) L 10/30/17 12:12 Absolute Nucleated RBC 0.00 10^3/uL (0-0.01) 10/30/17 12:12 Immature Gran % 0.6 % (0.0-1.1) 10/30/17 12:12 Immature Gran # 0.06 10^3/uL (0.00-0.10) 10/30/17 12:12 PT 19.8 SEC (12.0-15.0) H 10/30/17 12:12 INR 1.67 (0.83-1.16) H 10/30/17 12:12 APTT 32.4 SEC (23.0-38.0) 10/30/17 12:12 Sodium 130 mEq/L (135-145) L 10/30/17 12:12 Potassium 4.2 mEq/L (3.5-5.2) 10/30/17 12:12 Chloride 92 mEq/L (97-110) L 10/30/17 12:12 Carbon Dioxide 27 mEq/l (22-31) 10/30/17 12:12 Anion Gap 11 mEq/L (8-16) 10/30/17 12:12 BUN 61 mg/dL (7-23) H 10/30/17 12:12 Creatinine 1.6 mg/dL (0.7-1.3) H 10/30/17 12:12 Estimated GFR 43 10/30/17 12:12 Glucose 95 mg/dL (70-100) 10/30/17 12:12 Calcium 8.3 mg/dL (8.5-10.4) L 10/30/17 12:12 Troponin I 0.052 ng/mL (0.000-0.034) H 10/30/17 12:12 NT-Pro-B Natriuret Pep 7880 pg/mL (0-125) H 10/30/17 12:12 Visualized and Interpreted EKG results: Yes EKG Interpretation: Positive for: other (Atrial fibrillation with T-wave inversions in lead V4 through V5) Assessment & Plan Assessment: 72-year-old male presenting with acute systolic and diastolic CHF exacerbation in the setting of uncontrolled permanent atrial fibrillation, resulting in acute kidney injury, acute hyponatremia Plan: 1. Acute systolic and diastolic congestive heart failure exacerbation. Evidenced by bilateral lower extremity edema, symptomatic shortness of breath and orthopnea, most likely secondary to a combination of chronically low ejection fraction at 10-15% as well as diastolic dysfunction in the setting of uncontrolled permanent atrial fibrillation -reviewed outside records including 12/14/[address] Alex Saha, reporting that the patient was discharged on Coreg, digoxin, Eliquis , Lasix, and there were significant concerns regarding medical non adherence -the patient's symptoms are most likely a direct result of his medication non adherence, as the patient has been previously prescribed appropriate medications and scheduled for outpatient follow-up, to which he does not want to adhere -patient has been offered a chest x-ray and echocardiogram for further evaluation, but he does not want further diagnostic imaging or testing -he is currently amenable to as needed diuretics, but I will hold Lasix initially as we attempt to manage the patient's rapid AFib, and avoid worsening hypotension -once we have good rate control and blood pressure permitting, we will begin diuresis -monitor daily weights, strict I&Os 2. Permanent atrial fibrillation. Acute rapid ventricular response with heart rates in the 160-180 range, without overt chest symptoms but with CHF sequela -advised the patient that rate control may improve some of his symptoms including shortness of breath and lower extremity edema, which are the 2 current physical symptoms he is expressing -he is amenable to continuing the IV diltiazem drip, recommend introducing diltiazem 30 mg orally q.6 hours beginning at 6:00 p.m., blood pressure permitting, in an effort to wean off of the drip and then ultimately get on once daily continuous dosing of diltiazem -patient currently does not want systemic anticoagulation -he is status post previous ablation, he does not currently want cardioversion even if the patient has hemodynamic compromise and is at risk of , he does not want further emergent procedure 3. Acute kidney injury. Most likely secondary to renal hypoperfusion in the setting of above, with systolic blood pressure currently of 79 -attempt to avoid further hypotension by titrating diltiazem drip -repeat serum creatinine level tomorrow a.m. 4. Acute hyponatremia. Most likely secondary to renal hypoperfusion in the setting of above, attempt to improve cardiac output with measures outlined above , monitor serum sodium level 5. Medication non adherence. The patient's logic for medication non adherence as well as presenting with the intention of dying will be further explored in the advanced care encounter note to follow Diet. Regular Prophylaxis. High risk patient, patient currently does not want intervention, SCDs if tolerates Code status. Do not resuscitate, his friend Nolan is MD [facility] Disposition. Anticipated discharge is 10/31, pending stabilization of conditions outlined above. High-level of medical complexity, high risk patient for worsening morbidity and/ or mortality secondary to the issues as outlined above. I have discussed patient with Dr. Michael Alvarez, who will be assuming care for the patient tomorrow, and have convey the information outlined above.
--- NOTE | 2017-10-30 15:01 | HOSPPROG ---
Hospitalist Progress Note Assessment/Plan: Advanced care planning beyond the time spent with encounter initially performed in the history and physical, [id number] with patient from 1:15 p.m. Until 1: 45 p.m., 30 min, addressing the following: -patient is very clear about his intention for coming to the hospital today: The patient does not want to continue living -he is adamant that he wants his code status to be a do not resuscitate and is currently expressing the does not want further interventions, consistent with comfort measures -patient is very clear that he has been considering this for quite some time, but it is unclear as to the duration of the patient's rumination about , and whether the patient's thoughts on this matter have existed beyond the past 4 weeks or whether this is more episodic in nature -he does not currently warrant an M1 hold, as he denies that he is suicidal, but is purely seeking help and assistance -he is brought advanced directive with him to the hospital, and his friend Nolan is his MDPOA -the patient is amenable to pharmacologic interventions which would potentially make him physically feel better, including the diltiazem drip and the potential for diuretics, as mentioned in the history and physical -although the patient is very tangential, he expresses that he has a long history of dissatisfaction with the government and society, and he currently has experienced acute worsening of this distress secondary to the current administration as well as possibly more personal experiences which the patient does not entirely articulate regarding his fpc or discontinuation of work , and he does not currently find life satisfying despite experiencing what he describes as a very satisfying life in the past -although the patient reports that he was very involved with raising children when he lived in the [employer], he is not currently discussing them as medical decision makers or participants in his current decision making process -I recommended to the patient that he have a formal psychiatry evaluation, and [facility] has been contacted to coordinate this with Dr. Mey Calvillo, to ensure that the patient is not pathologically episodically depressed and requiring inpatient psychiatric stabilization in addition to the medical care which he will receive during this episode of care -I also recommended to the patient that we have hospice agency come speak with him, discussed with him what services they can provide, and also determine whether he qualifies for hospice and at what level -I recommended that we work together with our palliative care provider to continue the conversations with the patient as to his overall goals of care as we continue to serve the patient medically -I have discussed the above with our test case developer who will also work together with the hospitalists to coordinate the care Objective: Vital Signs Temp Pulse Resp BP Pulse Ox 36.7 C 97 14 79/65 L 93 10/30/17 13:02 10/30/17 13:02 10/30/17 13:02 10/30/17 13:02 10/30/17 13:02 PT 19.8 SEC (12.0-15.0) H 10/30/17 12:12 INR 1.67 (0.83-1.16) H 10/30/17 12:12 ICD10 Worksheet Patient Problems: Problems Problem Status Onset Atrial fibrillation Acute Atrial fibrillation with rapid ventricular response Acute Hyponatremia Acute Elevated LFTs Acute CHF (congestive heart failure) Acute Atrial fibrillation Acute
--- NOTE | 2017-10-30 15:18 | ASMTCMCOM ---
CM Note CM Note Notes: 10/30/2017 Case Management Note Discussed case with Dr. Abreu. Met w/pt to discuss hospice consult. Spent greater than 40 minutes with patient. Conversation was challenging with patient. Pt had difficulty answering questions directly. Answers frequently shifted in time and topics. Pt lives with two room mates in a trailer in [facility]. Pt refused to provide names or address. Pt refused to identify any family or friends. Pt expressed that he was going to here in the hospital and he did not want to discuss Hospice Options "because I don't have time for that, I'll be soon". Pt denied suicidal thoughts or plan. Pt states he is at the end of his chronic disease process and therefore his demise is imminent. "I was told 11 years ago I would only live for 10 years with Congestive Heart Failure." Pt states he had a cardiac arrest 11 years ago and was revived. Pt has explored [facility] but has not met with them yet. Left brochures of other Hospice Agencies in the area and will follow up with pt tomorrow. Discussed case with Tamara Banuelos to prepare for palliative meeting. Case Management poc: to be determined. Case Management to follow. Date Signed: 10/30/2017 03:18 PM Electronically Signed By:Nia Brewster RN
[2017-10-30] MEDS: DILTIAZEM 30 MG TAB PO SCH ×2 (18:28→19:35)
[2017-10-30] MEDS ORDERED: LACTULOSE 20 GM/30 ML UDCUP PO PRN (19:45)
[2017-10-30] MEDS ORDERED: MAGNESIUM HYDROXIDE 30 ML UDCUP PO PRN (19:45)
[2017-10-30] MEDS ORDERED: BISACODYL 10 MG SUPP PR PRN (19:45)
[2017-10-30] MEDS: MELATONIN 3 MG TAB PO SCH (21:03)
[2017-10-30] MEDS: SENNOSIDES/DOCUSATE SODIUM TAB PO SCH (21:03)
[2017-10-30] MEDS: ACETAMINOPHEN 325 MG TAB PO PRN (21:03)
[2017-10-31] MEDS: DILTIAZEM 30 MG TAB PO SCH ×3 (01:52→12:21)
[2017-10-31 04:30] LABS: PLATELET COUNT 138 10^3/uL (150-400)
[2017-10-31] MEDS: SENNOSIDES/DOCUSATE SODIUM TAB PO SCH ×2 (09:32→20:48)
[2017-10-31] MEDS: POLYETHYLENE GLYCOL 3350 17 GM PKT PO PRN (10:19)
[2017-10-31] MEDS ORDERED: LORazepam 0.5 MG TAB PO PRN ×2 (14:19→15:16)
--- NOTE | 2017-10-31 15:21 | HOSPPROG ---
Hospitalist Progress Note Assessment/Plan: I spent approximately 60 minutes discussing in detail with Mr Guzman his current status. He has severe CHF, worsening renal function today. - He stopped taking cardiac medicines 4 months ago as they made him feel poorly. He felt great for three months, but the past month he has felt terrible with edema and fatigue. I told him clearly that his organs are shutting down and that he is dying. I also told him I do not know the exact time course of this. I also told him that this is an uncomfortable position as he came to a hospital which typically works to help/heal patients. - I offered him two options - one option is to go purely comfort care. The other is more aggressive medical care which may help his organs to recover and give him a longer life. I also told him that we could potentially adjust his meds so he did not feel so poorly on them. - He clearly has decisional capacity. - He does not want to see a sole leveler while he is here. - He would prefer purely comfort measures. - I will stop all non-comfort meds, remove all his monitoring devices and stop checking labs. - We will pursue hospice consult. He may need to purchase medicare part B to cover hospice. - Palliative care and psychiatry are seeing him today - I appreciate their thoughts and assistance. - Psychiatry will follow up tomorrow as well. Objective: Vital Signs Temp Pulse Resp BP Pulse Ox 36.3 C 118 H 16 97/74 L 98 10/31/17 11:28 10/31/17 11:28 10/31/17 11:28 10/31/17 11:28 10/31/17 11:28 Laboratory Results 10/31/17 03:29 10/31/17 03:29 10/30/17 10/31/17 11/01/17 05:59 05:59 05:59 Intake Total 1320 Output Total 255 75 Balance 1065 -75 PT 19.8 SEC (12.0-15.0) H 10/30/17 12:12 INR 1.67 (0.83-1.16) H 10/30/17 12:12 ICD10 Worksheet Patient Problems: Problems Problem Status Onset Atrial fibrillation Acute Atrial fibrillation with rapid ventricular response Acute Hyponatremia Acute Elevated LFTs Acute CHF (congestive heart failure) Acute Atrial fibrillation Acute
--- NOTE | 2017-10-31 15:44 | ASMTCMCOM ---
CM Note CM Note Notes: 10/31/2017 Case Management Note. Pt is now on comfort measures. Pt is meeting with Amadou from Palliative Team to discuss d/c options. Pt has Medicare Part A only. Screened by [employer] this morning and found to be over assets for Medicaid. If pt chooses and qualifies for Hospice, pt will need to enroll in Medicare Part B for coverage. Pt was evaluated by Dr. Calvillo today. Case Management d/c poc: to be determined pending hospice choice. Case Management to follow. Date Signed: 10/31/2017 03:44 PM Electronically Signed By:Nia Brewster RN
--- NOTE | 2017-10-31 17:21 | PDMN ---
Medical Necessity Medical necessity: Change to IP, as of 10/31/17, per MD; los >2 mn for ongoing management of severe CHF & worsening renal function; admit for further monitoring, Psych/Palliative consults & discussion of tx goals; hx AFIB/Aflutter , CHF, severe tricuspid regurgitation, medication non adherence; per progress note & order 10/31/17
[2017-10-31] MEDS: ACETAMINOPHEN 325 MG TAB PO PRN (20:29)
[2017-10-31] MEDS: MELATONIN 3 MG TAB PO SCH (20:29)
[2017-11-01 09:14] VITALS: RESP 18
[2017-11-01] MEDS: SENNOSIDES/DOCUSATE SODIUM TAB PO SCH ×2 (13:49→19:13)
--- NOTE | 2017-11-01 14:00 | HOSPPROG ---
Hospitalist Progress Note Assessment/Plan: #Afib with RVR #CHF, systolic, acute on chronic #Acute renal failure #Hyponatremia, likely due to hypervolemia #Medical non compliance Plan: - He stopped taking cardiac medicines 4 months ago as they made him feel poorly. He felt great for three months, but the past month he has felt terrible with edema and fatigue. -cont with comfort care per his wishes -Psych to see him - He clearly has decisional capacity. - He does not want to see a assembler fishing floats while he is here. -It is difficult to predict how long he will live Check TSH and B12 per Psych. I do not see any e/o anemia Dispo planning Subjective: still wants comfort care. no cp. some sob Objective: Vital Signs Temp Pulse Resp BP Pulse Ox 36.4 C 120 H 18 91/73 L 93 11/01/17 09:14 11/01/17 09:14 11/01/17 09:14 11/01/17 09:14 11/01/17 09:14 10/31/17 11/01/17 11/02/17 05:59 05:59 05:59 Intake Total 350 Output Total 475 350 Balance -125 -350 PT 19.8 SEC (12.0-15.0) H 10/30/17 12:12 INR 1.67 (0.83-1.16) H 10/30/17 12:12 - Physical Exam Constitutional: no apparent distress Eyes: PERRL, EOMI Ears, Nose, Mouth, Throat: moist mucous membranes, hearing normal, No hard of hearing Cardiovascular: irregularly irregular, JVD, edema, No regular rate and rhythym Respiratory: reduced air movement Gastrointestinal: normoactive bowel sounds, soft, non-tender abdomen Skin: warm Neurologic: AAOx3 Psychiatric: interacting appropriately, not anxious, not encephalopathic Lymph, Heme, Immunologic: No petechiae ICD10 Worksheet Patient Problems: Problems Problem Status Onset Atrial fibrillation Acute Atrial fibrillation Acute Atrial fibrillation with rapid ventricular response Acute CHF (congestive heart failure) Acute Elevated LFTs Acute Hyponatremia Acute
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
--- NOTE | 2017-11-01 16:42 | ASMTCMCOM ---
CM Note CM Note Notes: Pts case discussed in tx rounds. Mey Calvillo came and consulted on pt. Needs are TBD at this time. CM to follow upon direction and recommendation of hospitalist and Mey Calvillo. Plan: TBD Date Signed: 11/01/2017 04:42 PM Electronically Signed By:OGPI Guido
[2017-11-01] MEDS: POLYETHYLENE GLYCOL 3350 17 GM PKT PO PRN (17:46)
[2017-11-01] MEDS: morphINE 10 MG/0.5 ML UDSYR PO PRN (19:12)
[2017-11-01] MEDS: MELATONIN 3 MG TAB PO SCH (19:13)
[2017-11-02] MEDS: SENNOSIDES/DOCUSATE SODIUM TAB PO SCH (10:16)
[2017-11-02 11:05] VITALS: BP 119/89; PULSE 93; TEMP 97.4; O2SAT 94
--- NOTE | 2017-11-02 14:14 | HOSPPROG ---
Hospitalist Progress Note Assessment/Plan: #Afib with RVR #CHF, systolic, acute on chronic #Acute renal failure #Hyponatremia, likely due to hypervolemia #Medical non compliance #Hypothyroidism: TSH 16 Plan: - He stopped taking cardiac medicines 4 months ago as they made him feel poorly. He felt great for three months, but the past month he has felt terrible with edema and fatigue. -cont with comfort care per his wishes -Psych consulted and he does not appear to have any active psychiatrical illness. He has decisional capacity - He clearly has decisional capacity. - He does not want to see a greeting card writer while he is here. -It is difficult to predict how long he will live -He does not want any labs or treatment Dispo planning: He is on RA. He has minimal resp issues. D/W CW and team at length. Subjective: no cp or sob. feels tired. does not want to discharge. does not want active mgmt of his medical conditions. Objective: Vital Signs Temp Pulse Resp BP Pulse Ox 36.3 C 93 18 119/89 H 94 11/02/17 10:00 11/02/17 10:00 11/02/17 10:00 11/02/17 10:00 11/02/17 10:00 11/01/17 11/02/17 11/03/17 05:59 05:59 05:59 Intake Total 350 2050 Output Total 475 1350 Balance -125 700 PT 19.8 SEC (12.0-15.0) H 10/30/17 12:12 INR 1.67 (0.83-1.16) H 10/30/17 12:12 - Time Spent With Patient Time Spent with Patient: greater than 35 minutes Time Spent with Patient: Greater than 35 minutes spent on this patients care, greater than 50% of time spent counseling, educating, and coordinating care regarding the above mentioned plan. - Physical Exam Constitutional: no apparent distress Eyes: PERRL, EOMI Ears, Nose, Mouth, Throat: moist mucous membranes, hearing normal Cardiovascular: regular rate and rhythym, edema Respiratory: reduced air movement Gastrointestinal: normoactive bowel sounds Skin: warm Neurologic: AAOx3 Psychiatric: interacting appropriately, not anxious, not encephalopathic Lymph, Heme, Immunologic: No petechiae ICD10 Worksheet Patient Problems: Problems Problem Status Onset Atrial fibrillation Acute chronic disease mgmt/transitional care Acute Atrial fibrillation Acute Atrial fibrillation with rapid ventricular response Acute CHF (congestive heart failure) Acute Elevated LFTs Acute Hyponatremia Acute
[2017-11-02] MEDS: morphINE 10 MG/0.5 ML UDSYR PO PRN (16:11)
--- NOTE | 2017-11-02 17:22 | PDIAF ---
- Diagnosis Diagnosis: hospice, chf Code Status: Do Not Resuscitate - Medication Management Discharge Medications: Medications to Continue on Transfer Acetaminophen [Tylenol 325mg (*)] 650 mg PO Q4HRS PRN #0 tab 12/14/16 [Last Taken Unknown] LORazepam [Ativan (*)] 0.5 - 1 mg PO Q6 PRN #30 tab 11/02/17 [Last Taken Unknown ] Melatonin [Melatonin 3 MG (*)] 3 mg PO HS #30 tab 11/02/17 [Last Taken Unknown] Ondansetron Odt [Zofran Odt 4 mg (*)] 4 mg PO Q4HRS PRN #30 tab 11/02/17 [Last Taken Unknown] Discharge Medications: Refer to the Discharge Home Medication list for PRN reason. - Orders Services needed: Registered Nurse Diet Recommendation: no restrictions on diet Diet Texture: Regular Texture Diet - Follow Up Care Current Providers and Referrals: NONE *PRIMARY CARE P,. [Primary Care Provider] -
--- NOTE | 2017-11-02 17:27 | PDDCSUM ---
Discharge Summary Discharge Summary: Discharge Diagnosis #Afib with RVR #CHF, systolic, acute on chronic #Acute renal failure #Hyponatremia, likely due to hypervolemia #Medical non compliance #Hypothyroidism: TSH 16 HPI/Hospital course: 72 yo male with longstanding CHF admitted with malaise. During this hospitalization he decided that he did not want further treatment for his AFib or CHF and that he wanted to enlist in hospice instead. - He stopped taking cardiac medicines 4 months ago as they made him feel poorly. He felt great for three months, but the past month he has felt terrible with edema and fatigue. -He has opted for hospice -Psych consulted and he does not appear to have any active psychiatrical illness. He has decisional capacity - He did not want to see a watch and clock repair clerk while he is here. -He wanted no medical mgmt or further discussion about treatment options. Per the pts wishes, we have honored his desire for hospice and have stopped all non essential meds. He will be discharge to hospice. Exam: please see PN from today meds: see med rec f/u: as needed with pcp total time spent on d/c is 45 minutes
--- NOTE | 2017-11-02 17:52 | ASMTCMCOM ---
CM Note CM Note Notes: Patient on comfort measures only. Per MD, ready for discharge. Met with patient to discuss options. Patient states his desire to '' and feels strongly it will be soon. Patient states he is open to discussing hospice options with [facility] (hospice options discussed). Spoke with [facility], referral sent. [facility] internet site designer this afternoon at 1600. Patient has a trust fund and states he is able to pay for [facility] (wishes to discharge to care center over home with hospice) as he may not have benefits for Hospice care. [facility] able to accept this evening. Patient also understands he may not have benefits for transportation from [facility] to Care Center. Will discharge this evening at 1800. Above discussed with MD and primary RN. [facility] to schedule [place] ambulance. Plan: Discharge at 1800 today to [facility]. Date Signed: 11/02/2017 05:51 PM Electronically Signed By:Diandra Healy RN
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
== END 2017-11-02 18:40 | disposition hospice, home (50) | DRG 292 ==
LOC: INTOOBSV 12:14 → F2W 13:00 → OBSVTOIN 10-31 15:07
PROVIDERS: ADMIT Internal Medicine; ATTEND Internal Medicine
DX: I50.23 Acute on chronic systolic (congestive) heart failure (principal); N17.9 Acute kidney failure, unspecified; E87.1 Hypo-osmolality and hyponatremia; I48.2 Chronic atrial fibrillation; E87.70 Fluid overload, unspecified; Z91.19 Patient's noncompliance with other medical treatment and regimen; T45.516A Underdosing of anticoagulants, initial encounter; T46.0X6A Underdosing of cardiac-stimulant glycosides and drugs of similar action, initial encounter; Z51.5 Encounter for palliative care
CPT/HCPCS: 82607-90; 96374; 97161-GP; 97166-GO; G0378; G8978-GP-CH; G8979-GP-CH; G8980-GP-CH; G8987-GO-CI; G8988-GO-CI; G8989-GO-CI; J1650